=== PATIENT | male | born 1995 | race African-American/Black ===

== ENCOUNTER 2023-10-24 10:28 | Emergency (ER) | payer OTHER ==
[~2023-10-24] VITALS: Ht 182.9 cm; Wt 70.3 kg
[2023-10-24] MEDS ORDERED: SULF1TAB48 PO (11:17)
[2023-10-24 11:39] VITALS: BP 121/74; TEMP 98.3; O2SAT 98
== END 2023-10-24 11:40 | disposition home or self-care (01) ==
LOC: ER 10:34
DX: L02.411 Cutaneous abscess of right axilla (principal); Z79.899 Other long term (current) drug therapy
CPT/HCPCS: A4606; A4663